=== PATIENT | female | born 1960 | race Caucasian/White ===

== ENCOUNTER 2016-06-21 09:04 | Emergency (ER) | payer MEDICAID ==
[2016-06-21 09:29] VITALS: BP 105/65; TEMP 97.6; BMI 21.4
[2016-06-21 11:05] VITALS: PULSE 87
--- NOTE | 2016-06-21 11:12 | DIRPT ---
CLINICAL DATA: Right ankle pain after falling down the basement steps this morning. EXAM: RIGHT ANKLE - COMPLETE 3+ VIEW COMPARISON: None. FINDINGS: There is no fracture or dislocation. Minimal spurs at the tips of the medial and lateral malleoli. No joint effusion. IMPRESSION: No acute abnormality. Electronically Signed By: Justin Muller M.D. On: 06/21/2016 11:09
[2016-06-21] MEDS ORDERED: Fioricet Tablet PO ONE (11:20)
[2016-06-21] MEDS ORDERED: IBUPROFEN 800 MG TAB PO ONE (11:21)
--- NOTE | 2016-06-21 11:44 | DIRPT ---
CLINICAL DATA: Right foot pain after fall, fell down steps this morning, dorsal foot pain EXAM: RIGHT FOOT COMPLETE - 3+ VIEW COMPARISON: None. FINDINGS: Three views of the right foot submitted. No acute fracture or subluxation. Mild soft tissue swelling dorsal tarsal region. Tiny plantar spur of calcaneus. IMPRESSION: No acute fracture or subluxation. Mild soft tissue swelling dorsal tarsal region. Electronically Signed By: Thai Keita M.D. On: 06/21/2016 11:41
--- NOTE | 2016-06-21 11:45 | EDPRACDOC ---
- General Information Chief Complaint: Foot Pain Stated Complaint: FALL (FOOT INJURY) Time Seen by Provider: 06/21/16 11:05 Information Source: Patient Home Medications: Home Medications Zolpidem Tartrate [Ambien] 10 mg PO HS PRN 01/07/16 Amphet Asp/Amphet/D-Amphet [Adderall 20 mg Tablet] 20 mg PO BID 06/21/16 Diazepam [Valium] 5 mg PO TID 06/21/16 Meloxicam [Mobic] 7.5 mg PO BID #20 tab 06/21/16 Ondansetron HCl [Zofran] 4 mg PO Q6H PRN #20 tab 06/21/16 Oxycodone HCl [Oxycodone Immediate Release] 15 mg PO QID 06/21/16 Allergies/Adverse Reactions: Allergies Allergy/AdvReac Type Severity Reaction Status Date / Time codeine [Codeine] Allergy Unknown Nausea/Vomi Verified 01/07/16 14:37 ting aspirin AdvReac Nausea/Vomi Verified 01/07/16 14:37 ting - History of Present Illness Onset: THIS AM HPI: PT PRESENTS TODAY WITH RIGHT ANTERIOR FOOT PAIN AFTER A FALL THIS MORNING. PT STATES THAT AT 0330 SHE WENT TO GET A COOKIE FROM THE KITCHEN AND SLIPPED ON THE LAST STEP. STATES THERE WAS NO PAIN AT THE TIME, BUT WHEN SHE WOKE UP THIS MORNING SHE WAS UNABLE TO BEAR WEIGHT. NO OTHER INJURY. PT IMMEDIATELY ASKS FOR A "SOMETHING REAL STRONG FOR PAIN, LIKE A SHOT OF DEMEROL, OR THAT OTHER 'D' WORD". Foot Problem Location: Reports: Right, Anterior Mechanism: Reports: Unknown Circumstances: Reports: Fall Able to Bear Weight: No Pain Severity: Reports: Moderate Associated Signs & Symptoms: Reports: None ED Past Medical History - History Reviewed Yes Nurses notes reviewed and agree except as marked - Patient Medical History Cardiac History: Reports: Hypercholesterolemia Respiratory History: Denies: Pneumonia Psychological History: Reports: Bipolar Disorder, Substance Use Disorder. Denies: Depression - Family Medical History Reports: Cancer (FATHER-PROSTATE, THROAT). Denies: Hypertension, Diabetes, Stroke, Cardiac Disorders - Social Medical History Smoking Status: Heavy tobacco smoker (5 or more cigarettes/day or daily pipe/ cigar) Social History: Reports: Substance Use Disorder EDM Review of Systems - Review of Systems ROS Negative Except as Marked: Yes All systems reviewed and were negative except as marked Constitutional: No Symptoms Reported Neurological: No Symptoms Reported Musculoskeletal: Foot Integumentary: No Symptoms Reported - Physical Exam Constitutional: Alert (Awake), No apparent distress Oriented to: Time, Person, Place Last recorded Vital Signs: Last Vital Signs Temp 97.6 F 06/21/16 09:24 Pulse 87 06/21/16 11:04 Resp 18 06/21/16 11:04 BP 105/65 06/21/16 11:04 Pulse Ox 95 06/21/16 11:04 Oxygen Pulse Oxygen Saturation 95 O2 Device Room Air Oxygen Flow Rate Fraction of Inspired Oxygen ( FIO2) - HEENT Head: Normal Eye Exam: Normal Neck: Normal, Denies Pain, Midline - Respiratory/Cardiovascular Respiratory: Normal - CTA Cardiovascular: Normal - GI Palpation: Normal Tenderness: Non tender - Musculoskeletal Back: Normal Extremities: Other (PT STATES TTP ALONG RIGHT ANTERIOR FOOT ALONG THE SECOND METATARSAL; NO BRUISING/SWELLING/DEFORMITY IS PRESENT; FOOT PHYSICALLY APPEARS NORMAL, ESPECIALLY WHEN COMPARED TO THE LEFT; PEDAL PULSES INTACT) - Integumentary Skin: Normal Lymphatics: Normal - Neurologic Cerebellar: Normal Mood Description: Normal Thought: Coherent Perception: Normal ED Foot Problem Phys Exam - Musculoskeletal Foot: Moderate Tenderness Ankle: Normal Achilles Tendon: Normal Nail: Normal Nailbed: Normal Soft Tissue: Tender Digit: Normal Digit Strength: Normal Distal Function/Circulation: Normal - Integumentary Skin: Normal Lymphatics: Normal - Additional Information PT HAS ACTIVE PRESCRIPTION OF 15 MG OXYCODONE QID AT HOME. ALSO, MULTIPLE OTHER CONTROLLED SUBSTANCES GIVEN BY HER PCP. NO CLINICAL INDICATION FOR FURTHER PAIN MEDICINE. Decision Time to Discharge: 11:49 - Departure Disposition: Home Condition: Good Final Diagnosis: Foot Sprain Instructions: RICE: Routine Care for Injuries Education/Counseling Given To: Patient Education/Counseling Given Regarding: Diagnosis, Treatment, Follow Up Referrals: None,No Provider [Primary Care Provider] - One Week Inocencio Maynard MD [Staff Physician] - One Week Prescriptions: New Meloxicam [Mobic] 7.5 mg PO BID #20 tab Ondansetron HCl [Zofran] 4 mg PO Q6H PRN #20 tab PRN Reason: Nausea/Vomiting No Action Zolpidem Tartrate [Ambien] 10 mg PO HS PRN PRN Reason: Insomnia Or Sleep Oxycodone HCl [Oxycodone Immediate Release] 15 mg PO QID Amphet Asp/Amphet/D-Amphet [Adderall 20 mg Tablet] 20 mg PO BID Diazepam [Valium] 5 mg PO TID Additional Instructions: RICE CARE FOR FOOT. TAKE MEDICATIONS WITH FOOD TO AVOID STOMACH IRRITATION. IF SYMPTOMS PERSIST, PLEASE FOLLOW UP WITH PCP/ORTHO FOR ADDITIONAL CARE.
== END 2016-06-21 12:14 | disposition home or self-care (01) ==
LOC: ED 09:04 → EDMC 12:14
DX: S93.601A Unspecified sprain of right foot, initial encounter (principal); W10.9XXA Fall (on) (from) unspecified stairs and steps, initial encounter; F31.9 Bipolar disorder, unspecified; F17.200 Nicotine dependence, unspecified, uncomplicated; Z79.899 Other long term (current) drug therapy
CPT/HCPCS: 73610; 73630; 99283; J3490